=== PATIENT | female | born 1955 | race Caucasian/White ===

== ENCOUNTER 2019-08-30 21:33 | Emergency (ER) | payer MEDICARE ==
[~2019-08-30] VITALS: Ht 165.1 cm; Wt 117.9 kg
== END 2019-08-30 22:06 | disposition home or self-care (01) ==
LOC: ED 21:33
DX: S01.01XA Laceration without foreign body of scalp, initial encounter (principal); W22.8XXA Striking against or struck by other objects, initial encounter; Y93.89 Activity, other specified; Y92.89 Other specified places as the place of occurrence of the external cause; Y99.8 Other external cause status